=== PATIENT | female | born 1950 | race Hispanic/Latino ===

== ENCOUNTER 2021-05-27 08:35 | Inpatient (IN) | payer MEDICARE, OTHER ==
[~2021-05-27] VITALS: Ht 152.4 cm; Wt 76.7 kg
[2021-05-27] VITALS (7 sets, daily range): BP systolic 129–133; BP diastolic 54–64
[~2021-05-27 08:35] MED LIST: ARTHROTEC EC 51 EACH PO; BACLOFEN20 MG PO; CALCIUM 500 +1 EAC2; DICYCLOMINE HCL20 MG PO; GLUCOSAMINE HC500 MG PO; OMEPRAZOLE40 MG PO; PRAVASTATIN SOD40 MG PO
[2021-05-27] MEDS ORDERED: ONDANSETRON HCL INJ 2MG/ML 2ML 2 MG/ML VIAL IV STA (08:50)
[2021-05-27] MEDS ORDERED: KETOROLAC TROMETHAMINE 30 MG/ML VIAL IV STA (08:50)
[2021-05-27] MEDS ORDERED: SODIUM CHLORIDE 0.9% 1000ML 1,000 ML IV ONE (09:00)
[2021-05-27] MEDS ORDERED: SODIUM CHLORIDE 0.9% 1000ML 1,000 ML ONE (09:11)
[2021-05-27] MEDS ORDERED: ONDANSETRON HCL INJ 2MG/ML 2ML 2 MG/ML VIAL ONE (09:11)
[2021-05-27] MEDS ORDERED: KETOROLAC TROMETHAMINE 30 MG/ML VIAL ONE (09:11)
[2021-05-27] MEDS ORDERED: MEROPENEM 1 GM in SODIUM CHLORIDE 0.9% 100 ML IV ONE (09:45)
[2021-05-27] MEDS ORDERED: GLUCOSAMINE 1,1 EACH PO (11:34)
[2021-05-27] MEDS ORDERED: PANTOPRAZOLE SO40 MG PO (11:34)
[2021-05-27] MEDS ORDERED: FEROSUL325 MG PO (11:34)
[2021-05-27] MEDS ORDERED: ELDERBERRY ZIN1 EACH (11:34)
[2021-05-27] MEDS ORDERED: PLAQUENIL200 MG PO (11:34)
[2021-05-27] MEDS ORDERED: CALCIUM 600 +1 EAC2 PO (11:34)
[2021-05-27] MEDS ORDERED: GLYCOPYRROLATE PO (11:34)
[2021-05-27] MEDS ORDERED: FLONASE ALLERG9.9 ML INH (11:34)
[2021-05-27] MEDS ORDERED: VITAMIN D350 MCG PO (11:34)
[2021-05-27] MEDS ORDERED: FLUOCINONIDE15 GM TOP (11:34)
[2021-05-27] MEDS ORDERED: LEVOFLOXACIN250 MG PO (11:35)
[2021-05-27] MEDS ORDERED: METRONIDAZOLE500 MG PO (11:35)
[2021-05-27] MEDS ORDERED: ONDANSETRON HCL INJ 2MG/ML 2ML 2 MG/ML VIAL IV PRN (14:00)
[2021-05-27 14:45] LABS: BASOPHILS % 0.4 % (0.0-1.0); EOSINOPHILS # (AUTO) 0.1 (0.0-0.4); EOSINOPHILS % 0.9 % (0.0-6.0); HEMATOCRIT 26.2 % (34.2-44.1); HEMOGLOBIN 8.2 g/dL (12.0-16.0); LYMPHOCYTES # (AUTO) 1.1 (1.0-3.2); LYMPHOCYTES % 14.4 % (18.0-39.1); MEAN CORPUSCULAR HEMOGLOBIN 28.9 pg (28-32); MEAN CORPUSCULAR HGB CONC 31.3 g/dL (31-35); MEAN CORPUSCULAR VOLUME 92.3 fL (81-99); MONOCYTES # (AUTO) 0.6 (0.2-0.8); MONOCYTES % 7.5 % (4.4-11.3); NEUTROPHILS # (AUTO) 5.6 (2.1-6.9); NEUTROPHILS % 75.7 % (38.7-80.0); PLATELET COUNT 326 x10e3/uL (140-360); RED BLOOD COUNT 2.84 x10e6/uL (3.6-5.1); RED CELL DISTRIBUTION WIDTH 11.9 % (11.7-14.4)
[2021-05-27 14:56] LABS: INR 1.11; PROTHROMBIN TIME 15.3 seconds (11.9-14.5)
[2021-05-27 14:57] LABS: PARTIAL THROMBOPLASTIN TIME 30.3 seconds (23.8-35.5)
[2021-05-27 15:06] LABS: ANION GAP 11.9 mmol/L (8-16); CALCIUM 7.7 mg/dL (8.4-10.2); CREATININE, SERUM 0.63 mg/dL (0.57-1.11); POTASSIUM 3.9 mmol/L (3.5-5.1)
[2021-05-27] MEDS: LACTATED RINGER'S 1,000 ML INJ SCH (15:26)
[2021-05-27] MEDS ORDERED: FENTANYL CITRATE/PF 100MCG/2 ML INJ ONE (15:40)
[2021-05-27] MEDS ORDERED: MIDAZOLAM HCL 2 MG/2 ML VIAL ONE (15:40)
[2021-05-27] MEDS ORDERED: LIDOCAINE HCL 1% LOCAL INJ 20 ML VIAL ONE (16:16)
[2021-05-27] MEDS ORDERED: FAMOTIDINE 20 MG/2 ML VIAL IV SCH (17:00)
[2021-05-27] MEDS: Morphine 2mg Syringe 2 MG/ML SYR IV PRN ×2 (18:20→22:27)
[2021-05-27] MEDS: FLUOCINONIDE 0.05% 1 EA/15 GM TUBE TOP SCH (20:00)
[2021-05-27] MEDS: BACLOFEN 10 MG TAB PO SCH (21:00)
[2021-05-28] VITALS (8 sets, daily range): BP systolic 108–129; BP diastolic 54–96
[2021-05-28] MEDS: LACTATED RINGER'S 1,000 ML INJ SCH ×2 (04:16→17:52)
[2021-05-28] MEDS: Morphine 2mg Syringe 2 MG/ML SYR IV PRN ×2 (05:07→12:00)
[2021-05-28 06:44] LABS: BASOPHILS % 0.5 % (0.0-1.0); EOSINOPHILS # (AUTO) 0.1 (0.0-0.4); EOSINOPHILS % 0.6 % (0.0-6.0); HEMATOCRIT 25.9 % (34.2-44.1); HEMOGLOBIN 8.5 g/dL (12.0-16.0); LYMPHOCYTES # (AUTO) 0.9 (1.0-3.2); LYMPHOCYTES % 10.6 % (18.0-39.1); MEAN CORPUSCULAR HEMOGLOBIN 30.2 pg (28-32); MEAN CORPUSCULAR HGB CONC 32.8 g/dL (31-35); MEAN CORPUSCULAR VOLUME 92.2 fL (81-99); MONOCYTES # (AUTO) 0.5 (0.2-0.8); MONOCYTES % 6.6 % (4.4-11.3); NEUTROPHILS # (AUTO) 6.5 (2.1-6.9); NEUTROPHILS % 80.7 % (38.7-80.0); PLATELET COUNT 299 x10e3/uL (140-360); RED BLOOD COUNT 2.81 x10e6/uL (3.6-5.1)
[2021-05-28 07:03] LABS: ANION GAP 10.7 mmol/L (8-16); CALCIUM 8.3 mg/dL (8.4-10.2); CREATININE, SERUM 0.61 mg/dL (0.57-1.11); POTASSIUM 3.7 mmol/L (3.5-5.1)
[2021-05-28 07:23] LABS: % IRON SATURATION 13 % (15-50); IRON 31 ug/dL (50-170); TOTAL IRON BINDING CAPACITY 246 ug/dL (261-478); TRANSFERRIN 176 mg/dL (180-382)
[2021-05-28] MEDS: FLUOCINONIDE 0.05% 1 EA/15 GM TUBE TOP SCH ×2 (08:00→20:00)
[2021-05-28] MEDS: FLUTICASONE PROPIONATE NASAL SPRAY NS SCH (08:34)
[2021-05-28] MEDS: BACLOFEN 10 MG TAB PO SCH ×3 (08:37→21:00)
[2021-05-28] MEDS: PRAVASTATIN 20 MG TAB PO SCH (08:43)
[2021-05-28] MEDS ORDERED: MISOPROSTOL PO PRN (17:15)
[2021-05-28] MEDS ORDERED: DICLOFENAC SODIUM PO PRN (17:15)
[2021-05-28] MEDS: HEPARIN SOD (PORCINE) 5,000 UNIT/ML VIAL SC SCH (21:00)
[2021-05-29] VITALS (8 sets, daily range): BP systolic 101–120; BP diastolic 45–77
[2021-05-29] MEDS: FLUOCINONIDE 0.05% 1 EA/15 GM TUBE TOP SCH ×2 (08:00→20:00)
[2021-05-29] MEDS: BACLOFEN 10 MG TAB PO SCH ×3 (08:28→21:00)
[2021-05-29] MEDS: FLUTICASONE PROPIONATE NASAL SPRAY NS SCH (08:31)
[2021-05-29] MEDS: PRAVASTATIN 20 MG TAB PO SCH (08:32)
[2021-05-29] MEDS: HEPARIN SOD (PORCINE) 5,000 UNIT/ML VIAL SC SCH ×2 (08:34→21:00)
[2021-05-29] MEDS: IRON SUCROSE 100 MG in SODIUM CHLORIDE 0.9% 100 ML 100 ML IV SCH (10:25)
[2021-05-30] VITALS: BP 110/52
[2021-05-30 04:00] VITALS: BP 105/55
[2021-05-30] MEDS: FLUOCINONIDE 0.05% 1 EA/15 GM TUBE TOP SCH (08:00)
[2021-05-30 08:55] VITALS: BP 109/52
[2021-05-30 08:57] VITALS: BP 109/52
[2021-05-30] MEDS: BACLOFEN 10 MG TAB PO SCH ×2 (09:00→15:00)
[2021-05-30] MEDS ORDERED: CEFDINIR300 MG PO (09:46)
[2021-05-30] MEDS: FLUTICASONE PROPIONATE NASAL SPRAY NS SCH (10:22)
[2021-05-30] MEDS: PRAVASTATIN 20 MG TAB PO SCH (10:23)
[2021-05-30] MEDS: IRON SUCROSE 100 MG in SODIUM CHLORIDE 0.9% 100 ML 100 ML IV SCH (11:17)
[2021-05-30] MEDS: HEPARIN SOD (PORCINE) 5,000 UNIT/ML VIAL SC SCH (11:18)
[2021-05-30 11:59] VITALS: BP 110/51
== END 2021-05-30 15:58 | disposition home or self-care (01) | DRG 392 ==
LOC: FSED 08:40 → ERHOLD 09:57 → MED/SURG2 11:09
PROVIDERS: ADMIT Internal Medicine; ATTEND Internal Medicine
PROC: 0W9J30Z Drainage of Pelvic Cavity with Drainage Device, Percutaneous Approach (ICD-10-PCS; principal; 2021-05-27)
DX: K57.80 Diverticulitis of intestine, part unspecified, with perforation and abscess without bleeding (principal); M06.9 Rheumatoid arthritis, unspecified; Z20.822 Contact with and (suspected) exposure to COVID-19; M81.0 Age-related osteoporosis without current pathological fracture; Z88.0 Allergy status to penicillin
CPT/HCPCS: 36415; 49406; 74176; 74470; 77012; 80048; 80076; 81003; 83540; 84466; 85025; 85610; 85730; 87070; 87205; 96361; 99284; C1729; C1769; J0696; J1644; J1756; J1885; J2001; J2185; J2250; J2270; J2405; J3010; J7030; J7050; J7121; U0002

== ENCOUNTER 2022-07-08 14:23 | Emergency (ER) | payer MEDICARE ==
[~2022-07-08] VITALS: Ht 160 cm; Wt 71.3 kg
[~2022-07-08 14:23] MED LIST changes: +CALCIUM 600 +1 EAC2 PO; +CEFDINIR300 MG PO; +ELDERBERRY ZIN1 EACH; +FEROSUL325 MG PO; +FLONASE ALLERG9.9 ML INH; +FLUOCINONIDE15 GM TOP; +GLUCOSAMINE 1,1 EACH PO; +GLYCOPYRROLATE PO; +LEVOFLOXACIN250 MG PO; +METRONIDAZOLE500 MG PO; +PANTOPRAZOLE SO40 MG PO; +PLAQUENIL200 MG PO; +VITAMIN D350 MCG PO
[2022-07-08] MEDS ORDERED: CARVEDILOL12.5 MG PO (14:42)
[2022-07-08] MEDS ORDERED: CENTRUM ADULTS1 EACH PO (14:42)
[2022-07-08] MEDS ORDERED: ASPIRIN EC81 MG PO (14:42)
[2022-07-08] MEDS ORDERED: OMEPRAZOLE40 MG PO (14:42)
[2022-07-08] MEDS ORDERED: ATORVASTATIN CA10 MG PO (14:42)
[2022-07-08] MEDS ORDERED: FAMOTIDINE 20 MG/2 ML VIAL IV STA (15:22)
[2022-07-08] MEDS ORDERED: ONDANSETRON HCL INJ 2MG/ML 2ML 2 MG/ML VIAL IV STA ×2 (15:22→17:08)
[2022-07-08] MEDS ORDERED: KETOROLAC TROMETHAMINE 30 MG/ML VIAL IV STA (15:22)
[2022-07-08] MEDS ORDERED: SODIUM CHLORIDE 0.9% 1000ML 1,000 ML IV SCH (15:30)
[2022-07-08] MEDS ORDERED: SODIUM CHLORIDE 0.9% 1000ML 1,000 ML ONE (15:48)
[2022-07-08] MEDS ORDERED: FAMOTIDINE 20 MG/2 ML VIAL IV ONE (15:48)
[2022-07-08] MEDS ORDERED: ONDANSETRON HCL INJ 2MG/ML 2ML 2 MG/ML VIAL ONE ×2 (15:48→17:02)
[2022-07-08] MEDS ORDERED: KETOROLAC TROMETHAMINE 30 MG/ML VIAL ONE (15:48)
[2022-07-08 16:44] VITALS: O2SAT 97
[2022-07-08] MEDS ORDERED: ONDANSETRON ODT4 MG PO (17:05)
[2022-07-08] MEDS ORDERED: FAMOTIDINE40 MG PO (17:06)
== END 2022-07-08 17:16 | disposition home or self-care (01) ==
LOC: FSED 14:26
DX: K52.9 Noninfective gastroenteritis and colitis, unspecified (principal); K21.9 Gastro-esophageal reflux disease without esophagitis; E78.5 Hyperlipidemia, unspecified; I10 Essential (primary) hypertension; M81.0 Age-related osteoporosis without current pathological fracture; Z88.0 Allergy status to penicillin; Z88.8 Allergy status to other drugs, medicaments and biological substances; Z88.1 Allergy status to other antibiotic agents; Z91.041 Radiographic dye allergy status; Z79.82 Long term (current) use of aspirin; Z79.899 Other long term (current) drug therapy; Z87.19 Personal history of other diseases of the digestive system; Z86.2 Personal history of diseases of the blood and blood-forming organs and certain disorders involving the immune mechanism
CPT/HCPCS: 74176; 80048; 80076; 81003; 82553; 84484; 85025; 93005; 96374; 96375; 96376; 99284; J1885; J2405; J7030

== ENCOUNTER 2022-07-10 00:45 | Emergency (ER) | payer MEDICARE ==
[~2022-07-10] VITALS: Ht 160 cm; Wt 71.7 kg
[~2022-07-10 00:45] MED LIST changes: +ASPIRIN EC81 MG PO; +ATORVASTATIN CA10 MG PO; +CARVEDILOL12.5 MG PO; +CENTRUM ADULTS1 EACH PO; +FAMOTIDINE40 MG PO; +ONDANSETRON ODT4 MG PO
[2022-07-10] MEDS ORDERED: ONDANSETRON HCL INJ 2MG/ML 2ML 2 MG/ML VIAL IV STA (01:14)
[2022-07-10] MEDS ORDERED: Morphine 4mg INJECTION 4 MG/ML INJ IV ONE (01:15)
[2022-07-10] MEDS ORDERED: SODIUM CHLORIDE 0.9% 1000ML 1,000 ML IV ONE (01:30)
[2022-07-10] MEDS ORDERED: DIPHENHYDRAMINE HCL INJ 50 MG/ML VIAL IV ONE (01:30)
[2022-07-10] MEDS ORDERED: METHYLPREDNISOLONE SOD SUCC 125 MG/2ML VIAL IV ONE (01:30)
[2022-07-10] MEDS ORDERED: METHYLPREDNISOLONE ACETATE 40 MG/ML VIAL IM ONE ×2 (01:45)
[2022-07-10] MEDS ORDERED: ONDANSETRON HCL INJ 2MG/ML 2ML 2 MG/ML VIAL ONE (01:47)
[2022-07-10] MEDS ORDERED: METHYLPREDNISOLONE ACETATE 40 MG/ML VIAL ONE (01:47)
[2022-07-10] MEDS ORDERED: Morphine 4mg INJECTION 4 MG/ML INJ ONE (01:48)
[2022-07-10] MEDS ORDERED: DIPHENHYDRAMINE HCL INJ 50 MG/ML VIAL ONE (01:48)
[2022-07-10] MEDS ORDERED: SODIUM CHLORIDE 0.9% 1000ML 1,000 ML ONE (01:49)
[2022-07-10] MEDS ORDERED: SODIUM BICARBONATE 4.2% 10 ML SYRINGE ONE (01:49)
[2022-07-10] MEDS ORDERED: DEXAMETHASONE SOD PHOS 10 MG/1 ML VIAL IV ONE (02:00)
[2022-07-10] MEDS ORDERED: DEXAMETHASONE SOD PHOS INJ 4 MG/ML SDV ONE (02:03)
[2022-07-10 03:36] VITALS: BP 142/76; PULSE 62; RESP 18; TEMP 97; O2SAT 98
== END 2022-07-10 03:40 | disposition home or self-care (01) ==
LOC: FSED 01:04
DX: K21.9 Gastro-esophageal reflux disease without esophagitis (principal); R10.10 Upper abdominal pain, unspecified; K43.9 Ventral hernia without obstruction or gangrene; I72.8 Aneurysm of other specified arteries; K22.70 Barrett's esophagus without dysplasia; Z90.49 Acquired absence of other specified parts of digestive tract; Z79.899 Other long term (current) drug therapy
CPT/HCPCS: 71260; 74177; 80048; 80076; 85025; 99283; J1030; J1100 ×2; J1200; J2270; J2405; J7030